=== PATIENT | male | born 1970 | race Caucasian/White ===

== ENCOUNTER 2020-01-21 09:00 | Outpatient (RCR) | payer OTHER, SELFPAY | END 2020-04-11 23:59 | disposition home or self-care (01) | LOC: ANHBWCAUD 09:00 | DX: Z46.1 Encounter for fitting and adjustment of hearing aid (principal) | CPT/HCPCS: 99199 ==

== ENCOUNTER 2020-04-24 11:51 | Outpatient (CLI) | payer OTHER, SELFPAY ==
[2020-04-24 12:54] LABS: Alanine Aminotransferase 19 U/L (4-50); Albumin Level 3.9 g/dL (3.5-5.1); Alkaline Phosphatase 89 U/L (38-126); Anion Gap 3 mmol/L (8-16); Aspartate Amino Transferase 23 U/L (17-59); Bilirubin,Total 0.4 mg/dL (0.2-1.3); Blood Urea Nitrogen 12 mg/dL (9-20); Calcium 8.9 mg/dL (8.4-10.2); Carbon Dioxide 30 mmol/L (22-30); Chloride 109 mmol/L (98-107); Cholesterol 129 mg/dL (0-200); Estimated Glomerular Filt Rate > 60; Glucose 102 mg/dL (75-110); HDL Direct 50 mg/dL; Potassium 4.8 mmol/L (3.4-5.0); Sodium 142 mmol/L (137-145); Triglycerides 67 mg/dL (<150)
[2020-04-24 13:05] LABS: LDL Cholesterol Direct 56 mg/dL
== END 2020-04-24 11:52 | disposition home or self-care (01) ==
PROVIDERS: Visit Provider Internal Medicine Cardiovascular Disease
DX: E78.5 Hyperlipidemia, unspecified (principal)
CPT/HCPCS: 36415; 80053; 80061